=== PATIENT | female | born 1980 | race Caucasian/White ===

== ENCOUNTER → 2022-01-27 | Outpatient (CLI) | payer OTHER ==
[~2022-01-27] MED LIST: ENULOSE10 GM/15 M PO; FLEET ENEMA 13133 ML PR
== END ==
LOC: MAMO 01-15 14:30 → US 01-20 13:30 → MAMO 10:30
DX: R92.8 Other abnormal and inconclusive findings on diagnostic imaging of breast (principal)
CPT/HCPCS: 76641-RT; 77065